=== PATIENT | male | born 1975 | race African-American/Black ===

== ENCOUNTER 2021-01-05 11:17 | Emergency (ER) | payer OTHER ==
[~2021-01-05] VITALS: Ht 162.6 cm; Wt 68.0 kg
[2021-01-05 11:19] VITALS: BP 107/88
== END 2021-01-05 11:49 ==
LOC: ER 11:17
DX: F16.10 Hallucinogen abuse, uncomplicated (principal); F17.210 Nicotine dependence, cigarettes, uncomplicated